=== PATIENT | male | born 1980 | race Caucasian/White ===

== ENCOUNTER → 2018-05-05 | Outpatient (REF) | payer BC | LOC: M LAB REF 13:00 | PROVIDERS: ATTEND Physician Assistant Medical | DX: B00.9 Herpesviral infection, unspecified (principal) ==

== ENCOUNTER → 2019-01-29 | Outpatient (CLI) | payer BC ==
--- NOTE | 2019-01-29 16:42 | REP ---
Right ankle series: Two views. History: Pain in the Achilles tendon. No comparison imaging. Findings: There are calcific and ossific bodies along the anterior margin of the swollen distal Achilles tendon visible on lateral film consistent with chronic Achilles tendonitis tendinosis. There is some edema in the pre-Achilles fat. Achilles tendon thickening is seen. There is mild midfoot osteoarthritic spurring at the talonavicular articulation. Ankle mortise is intact. Mild tibiotalar spurring is also noted. 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 Ankle and midfoot osteoarthritic spurring. Electronically Signed by Singh Drew MD 01/29/2019 05:09 P
== END ==
LOC: M CLY 13:44
PROVIDERS: ATTEND Family Medicine
DX: M76.60 Achilles tendinitis, unspecified leg (principal)

== ENCOUNTER → 2021-02-04 | Outpatient (REF) | payer BC | LOC: M SFHCCLAY 16:44 | PROVIDERS: ATTEND Family Medicine | DX: L08.9 Local infection of the skin and subcutaneous tissue, unspecified (principal) ==

== ENCOUNTER → 2021-08-09 | Outpatient (REF) | payer BC ==
[2021-08-09 12:07] LABS: ALBUMIN 3.9 GM/DL (3.2-5.2); ALT/SGPT 22 U/L (12-78); BILIRUBIN,TOTAL 0.4 MG/DL (0.2-1.0); BLOOD UREA NITROGEN 12 MG/DL (7-18); CALCIUM LEVEL 9.8 MG/DL (8.5-10.1); CARBON DIOXIDE LEVEL 30 MEQ/L (21-32); CHLORIDE LEVEL 106 MEQ/L (98-107); CHOLESTEROL LEVEL 165 MG/DL (<200); CHOLESTEROL RISK RATIO 4.342 (<5); CREATININE FOR GFR 1.24 MG/DL (0.70-1.30); GLOMERULAR FILTRATION RATE > 60.0 (>60); GLUCOSE, FASTING 101 MG/DL (70-100); HDL CHOLESTEROL 38 MG/DL (>40); LDL CHOLESTEROL 106 MG/DL (<100); NON-HDL-C 127 MG/DL; SODIUM LEVEL 142 MEQ/L (136-145); TOTAL PROTEIN 7.3 GM/DL (6.4-8.2); TRIGLYCERIDES LEVEL 105 MG/DL (<150)
[2021-08-09 12:18] LABS: HEMOGLOBIN A1c 5.5 %
[2021-08-09 12:56] LABS: HIV 1&2 SCREEN CENTAUR NEGATIVE (NEGATIVE)
== END ==
LOC: M SFHCCLAY 08:00
PROVIDERS: ATTEND Family Medicine
DX: Z00.00 Encounter for general adult medical examination without abnormal findings (principal); Z83.3 Family history of diabetes mellitus; Z13.1 Encounter for screening for diabetes mellitus; Z13.220 Encounter for screening for lipoid disorders; Z11.4 Encounter for screening for human immunodeficiency virus [HIV]; Z11.52 Encounter for screening for COVID-19